=== PATIENT | male | born 1990 | race Caucasian/White ===

== ENCOUNTER 2020-07-19 13:56 | Inpatient (IN) | payer BC, OTHER ==
[2020-07-19 14:36] LABS: #Basophils 0.1 thou/uL (0.0-0.2); #Eosinphils 0.1 thou/uL (0.0-0.7); #Lymphocytes 1.6 thou/uL (1.20-3.40); #Monocytes 0.5 thou/uL (0.11-0.59); %Basophils 0.6 % (0.0-1.0); %Lymphocytes 19.1 % (21.0-51.0); %Monocytes 6.3 % (0.0-10.0); Mean Corpuscular Hemoglobin 32.3 pg (27.0-31.0); Mean Corpuscular Volume 89.6 fL (78.0-98.0); Mean Platelet Volume 8.8 fL (7.4-10.4); Platelet Count 232 thou/uL (130-400); RBC Distribution Width 12.7 % (11.5-14.5); Red Blood Cell (RBC) Count 4.97 mill/uL (4.70-6.10); White Blood Cell (WBC) Count 8.2 thou/uL (4.8-10.8)
[2020-07-19 14:47] LABS: ALT (SGPT) 9 U/L (8-55); AST (SGOT) 12 U/L (5-34); Albumin 4.2 g/dL (3.5-5.0); Alkaline Phosphatase 144 U/L (40-110); BUN (Urea Nitrogen) 9 mg/dL (8.9-20.6); Bilirubin, Total 0.7 mg/dL (0.2-1.2); Calc. Creatinine Clearance 0 mL/min (70-130); Calcium 9.4 mg/dL (7.8-10.44); Chloride 102 mmol/L (98-107); Globulin 2.8 g/dL (2.4-3.5); Potassium 3.5 mmol/L (3.5-5.1); Sodium 130 mmol/L (136-145)
[2020-07-19 14:51] LABS: Carbon Dioxide Less than 8 mmol/L (22-29); Glucose 599 mg/dL (70-105)
[2020-07-19] MEDS ORDERED: INSULIN REGULAR IN 0.9 % NACL 100 UNIT/100 ML BAG ONE (15:21)
[2020-07-19] MEDS ORDERED: Ondansetron PF 4 MG/2 ML Vial IVP PRN (15:23)
[2020-07-19] MEDS ORDERED: NS 0.9% w/ 20 MEQ KCL 1,000 ML IV PRN ×2 (15:23)
[2020-07-19] MEDS ORDERED: Electrolyte Replacement Protocol 1 EACH IVPB ONE (15:23)
[2020-07-19] MEDS ORDERED: Acetaminophen 325 MG TAB PO PRN (15:23)
[2020-07-19] MEDS ORDERED: Dextrose 5 %-0.45 % NaCl 1,000 ML IV PRN (15:23)
[2020-07-19] MEDS ORDERED: Sodium Chloride 0.9% 1,000 ML IV PRN ×4 (15:23)
[2020-07-19] MEDS ORDERED: HUMULIN R 100 UNITS in Sodium Chloride 0.9% 100 ML IVPB SCH (15:30)
[2020-07-19 15:35] LABS: Base Excess -19.6 mEq/L (-2.0 to +3.0); Calcium, Ionized (venous) 1.26 mmol/L (1.16-1.32); Chloride (VBG) 101 mmol/L (98-106); Hemoglobin (Hb) 15.8 g/dL (13.2-17.3); Potassium (VBG) 3.11 mmol/L (3.70-5.30); Sodium 131.7 mmol/L (133-146)
[2020-07-19 15:37] LABS: Bilirubin Negative (Negative); Blood, Urine 1+ (Negative); Clarity Clear (Clear); Glucose, Urine (Dipstick) Greater than 1000 mg/dL (Negative); Ketone, Urine Greater than 150 mg/dL (Negative); Leukocyte Negative Leu/uL (Negative); Nitrite Negative (Negative); Protein, Urine (Dipstick) 30 mg/dL (Neg-Trace); Specific Gravity, Urine 1.032 (1.002-1.036); Squamous Epithelial None Seen HPF (0-3); Urobilinogen Normal mg/dL (Less than 2); WBC/HPF 0-3 HPF (0-3); pH, Urine 5.5 (5.0-9.0)
[2020-07-19 15:37] LABS: Actual Bicarbonate (HCO3v) 7 mEq/L (22-28); pH (venous) 7.16 (7.32-7.43)
[2020-07-19 15:38] LABS: Bacteria/HPF Rare-Few HPF (None Seen); RBC/HPF 0-3 HPF (0-3)
[2020-07-19] MEDS ORDERED: Electrolyte Replacement Protocol FS PRN (15:45)
[2020-07-19 15:46] LABS: Hemoglobin A1c Greater than 14.0 % (4.0-6.0)
[2020-07-19 16:02] LABS: BUN (Urea Nitrogen) 9 mg/dL (8.9-20.6); Calc. Creatinine Clearance 0 mL/min (70-130); Calcium 9.3 mg/dL (7.8-10.44); Chloride 102 mmol/L (98-107); Sodium 131 mmol/L (136-145)
[2020-07-19 16:21] LABS: Carbon Dioxide Less than 8 mmol/L (22-29); Glucose 583 mg/dL (70-105)
[2020-07-19] MEDS ORDERED: NS 0.9% w/ 20 MEQ KCL 1,000 ML IV SCH (16:30)
[2020-07-19 16:40] LABS: SARS-CoV-2 NAA Rapid Test Not Detected (NotDetected)
[2020-07-19 17:31] VITALS: BMI 26.0
[2020-07-19] MEDS: D5 1/2 NS w/20 mEq KCL 1,000 ML IV PRN (18:30)
[2020-07-19 20:13] LABS: Anion Gap 15 mmol/L (10-20); BUN (Urea Nitrogen) 6 mg/dL (8.9-20.6); Calc. Creatinine Clearance 102 mL/min (70-130); Calcium 8.7 mg/dL (7.8-10.44); Carbon Dioxide 12 mmol/L (22-29); Chloride 113 mmol/L (98-107); Glucose 279 mg/dL (70-105); Sodium 137 mmol/L (136-145)
[2020-07-19 20:21] LABS: Potassium 2.9 mmol/L (3.5-5.1)
[2020-07-19] MEDS: Potassium Chloride 20 MEQ TAB PO SCH (21:34)
[2020-07-19 23:42] LABS: Anion Gap 12 mmol/L (10-20); BUN (Urea Nitrogen) 6 mg/dL (8.9-20.6); Calc. Creatinine Clearance 115 mL/min (70-130); Calcium 8.3 mg/dL (7.8-10.44); Carbon Dioxide 14 mmol/L (22-29); Chloride 113 mmol/L (98-107); Glucose 190 mg/dL (70-105); Sodium 136 mmol/L (136-145)
[2020-07-19 23:47] LABS: Potassium 2.9 mmol/L (3.5-5.1)
[2020-07-20] MEDS: Potassium Chloride 20 MEQ TAB PO SCH
[2020-07-20] MEDS: D5 1/2 NS w/20 mEq KCL 1,000 ML IV PRN (03:25)
[2020-07-20 03:48] LABS: Anion Gap 7 mmol/L (10-20); BUN (Urea Nitrogen) 5 mg/dL (8.9-20.6); Calc. Creatinine Clearance 120 mL/min (70-130); Calcium 8.2 mg/dL (7.8-10.44); Carbon Dioxide 18 mmol/L (22-29); Chloride 113 mmol/L (98-107); Glucose 189 mg/dL (70-105); Sodium 135 mmol/L (136-145)
[2020-07-20] MEDS ORDERED: Potassium Chloride 20 MEQ TAB PO SCH (04:00)
[2020-07-20 04:07] LABS: #Basophils 0.1 thou/uL (0.0-0.2); #Eosinphils 0.3 thou/uL (0.0-0.7); #Lymphocytes 2.3 thou/uL (1.20-3.40); #Monocytes 0.7 thou/uL (0.11-0.59); #Neutrophils 3.4 thou/uL (1.40-6.50); %Basophils 1.5 % (0.0-1.0); %Eosinophils 3.9 % (0.0-10.0); %Lymphocytes 34.2 % (21.0-51.0); %Monocytes 10.3 % (0.0-10.0); %Neutrophils 50.1 % (42.0-75.0); Mean Corpuscular HGB CONC 36.2 g/dL (32.0-36.0); Mean Corpuscular Hemoglobin 32.6 pg (27.0-31.0); Mean Corpuscular Volume 89.9 fL (78.0-98.0); Mean Platelet Volume 8.6 fL (7.4-10.4); Platelet Count 201 thou/uL (130-400); RBC Distribution Width 12.5 % (11.5-14.5); Red Blood Cell (RBC) Count 3.98 mill/uL (4.70-6.10); White Blood Cell (WBC) Count 6.7 thou/uL (4.8-10.8)
[2020-07-20] MEDS ORDERED: Lantus 1000 UNITS/10 ML VIAL SC SCH ×2 (08:00→21:00)
[2020-07-20] MEDS: Enoxaparin Sodium 40 MG/0.4 ML SYRINGE SC SCH (08:26)
[2020-07-20] MEDS ORDERED: Dextrose 50% Abboject 50 ML SYRINGE IVP PRN (17:45)
[2020-07-20] MEDS ORDERED: Dextrose 5% in Water 1,000 ML IV PRN (17:45)
[2020-07-20] MEDS: Insulin Regular 300 UNITS/3 ML VIAL SC PRN (17:50)
[2020-07-20] MEDS ORDERED: glipiZIDE 5 MG TAB PO SCH (20:00)
[2020-07-20] MEDS ORDERED: Insulin Regular 300 UNITS/3 ML VIAL SC PRN (21:30)
[2020-07-21] MEDS: Insulin Regular 300 UNITS/3 ML VIAL SC PRN ×2 (05:53→12:29)
[2020-07-21 07:02] LABS: #Basophils 0.1 thou/uL (0.0-0.2); #Eosinphils 0.2 thou/uL (0.0-0.7); #Lymphocytes 2.2 thou/uL (1.20-3.40); #Monocytes 0.7 thou/uL (0.11-0.59); #Neutrophils 2.7 thou/uL (1.40-6.50); %Basophils 1.2 % (0.0-1.0); %Eosinophils 3.7 % (0.0-10.0); %Lymphocytes 36.9 % (21.0-51.0); %Monocytes 12.6 % (0.0-10.0); %Neutrophils 45.6 % (42.0-75.0); Hemoglobin 14.7 g/dL (14.0-18.0); Mean Corpuscular HGB CONC 36.3 g/dL (32.0-36.0); Mean Corpuscular Hemoglobin 32.2 pg (27.0-31.0); Mean Corpuscular Volume 88.5 fL (78.0-98.0); Mean Platelet Volume 8.3 fL (7.4-10.4); Platelet Count 216 thou/uL (130-400); RBC Distribution Width 12.8 % (11.5-14.5); Red Blood Cell (RBC) Count 4.57 mill/uL (4.70-6.10); White Blood Cell (WBC) Count 5.8 thou/uL (4.8-10.8)
[2020-07-21 07:23] LABS: Anion Gap 15 mmol/L (10-20); BUN (Urea Nitrogen) 7 mg/dL (8.9-20.6); Calc. Creatinine Clearance 135 mL/min (70-130); Carbon Dioxide 20 mmol/L (22-29); Chloride 106 mmol/L (98-107); Glucose 243 mg/dL (70-105); Sodium 138 mmol/L (136-145)
[2020-07-21 07:29] LABS: Potassium 2.7 mmol/L (3.5-5.1)
[2020-07-21] MEDS ORDERED: glipiZIDE 5 MG TAB PO SCH (07:30)
[2020-07-21] MEDS ORDERED: metFORMIN 500 MG TAB PO SCH (08:00)
[2020-07-21] MEDS: Enoxaparin Sodium 40 MG/0.4 ML SYRINGE SC SCH (08:02)
[2020-07-21 08:32] VITALS: TEMP 97.8
[2020-07-21] MEDS ORDERED: Potassium Chloride 20 MEQ TAB PO SCH (08:45)
[2020-07-21] MEDS ORDERED: Lantus 1000 UNITS/10 ML VIAL SC SCH (09:00)
[2020-07-21] MEDS: Potassium Chloride 20 MEQ in Premix Bag 1 BAG IVPB SCH ×2 (09:15→11:16)
[2020-07-21 12:25] VITALS: BP 123/67
== END 2020-07-21 14:22 | disposition home or self-care (01) | DRG 638 ==
LOC: ERS 13:56 → IMCU/EMU 15:26 → T4-A 07-20 15:24
PROVIDERS: ADMIT Internal Medicine; ATTEND Internal Medicine
DX: E11.10 Type 2 diabetes mellitus with ketoacidosis without coma (principal); N17.9 Acute kidney failure, unspecified; E87.1 Hypo-osmolality and hyponatremia; E87.6 Hypokalemia; E86.0 Dehydration
CPT/HCPCS: 0240U; 36415; 36416; 80048; 80053; 81003; 81015; 82010; 82805; 83036; 85025; 96365; 96375; J1650; J1815; J3480